=== PATIENT | female | born 1965 | race Asian ===

== ENCOUNTER 2017-01-06 14:10 | Outpatient (CLI) | payer MEDICAID ==
--- NOTE | 2017-01-07 16:31 | Mammography Report ---
DIGITAL SCREENING MAMMOGRAM: 01/06/2017 CLINICAL INDICATION: A 51-year-old, for screening. COMPARISON: 05/2015, 01/2013, 01/2011, 01/2010, 01/2009. TECHNIQUE: Routine CC and MLO projections were obtained of the breasts. Bilateral laterally exaggera sherine craniocaudal views. FINDINGS: Parenchymal tissue within both breasts is heterogeneously dense, which may lower the sensi tivity of mammography; however, there are no dominant masses, suspicious microcalcifications, or seco ndary signs of malignancy. In comparison to the previous studies, there are no significant changes. ASSESSMENT: NO MAMMOGRAPHIC EVIDENCE OF MALIGNANCY. NO SIGNIFICANT INTERVAL CHANGES. RECOMMENDATION: Screening mammography is recommended annually. BIRADS category 1 - negative. STANDARD QUALIFYING STATEMENTS 1. This examination was reviewed with the aid of Computed-Aided Detection (CAD). 2. A negative or benign imaging report should not delay biopsy if clinically suspicious findings are present. Consider surgical consultation if warranted. More than 5% of cancers are not identified by i maging. 3. Dense breasts may obscure an underlying neoplasm. 15:9:06 JOB #: [id number] EXT JOB #:[id number]
== END 2017-01-06 14:11 | disposition home or self-care (01) ==
LOC: DI.N 14:10
PROVIDERS: ATTEND Nurse Practitioner Gerontology
DX: Z12.31 Encounter for screening mammogram for malignant neoplasm of breast (principal)
CPT/HCPCS: 77067

== ENCOUNTER 2017-02-12 09:32 | Outpatient (CLI) | payer MEDICAID | END 2017-02-12 09:33 | disposition home or self-care (01) | DX: Z13.9 Encounter for screening, unspecified (principal); E78.5 Hyperlipidemia, unspecified ==

== ENCOUNTER 2017-04-22 06:06 | Day surgery (SDC) | payer MEDICAID ==
[2017-04-22] MEDS ORDERED: LACTATED RINGERS 1,000 ML IV ONE (06:30)
--- NOTE | 2017-04-22 07:37 | SURGERY HX AND PHYSICAL(T) ---
Surgical History & Physical - PMH/PSH/Social Hx Does the pt have a hx of MRSA?: No Eyes, Ears, Nose, Throat: None Cardiovascular: None Respiratory: None Skin: None Endocrine/Autoimmune: None Gastrointestinal: Hemorrhoids Urinary: None Musculoskeletal: None Psychiatric: None Orthopedic: Carpal Tunnel surgery - Home Meds and Allergies Home Medications: Sumatriptan [Imitrex] 25 mg PO PRN PRN 04/20/17 traZODone [Desyrel] 50 mg PO HS PRN 04/20/17 Acetaminophen [Tylenol] 650 mg PO Q6H PRN 04/22/17 Allergies/Adverse Reactions: Allergies Allergy/AdvReac Type Severity Reaction Status Date / Time Penicillins Allergy Hives Verified 04/20/17 13:17 - Vital Signs Temperature: 37 C Respiratory Rate: 16 O2 Saturation: 100 Weight (kg): 48.2 kg Height: 4 ft 8 in - Patient Review Patient Review: Problems were reviewed with the patient during this visit. Medications were reviewed with the patient during this visit. Allergies were reviewed this patient during this visit. Pertinent Tests Reviewed: All pertitent test for this patient were reviewed. - Assessment & Plan Assessment and Plan: Visit Type: Initial Consult Referring Provider: Sara Ambrocio History of Present Illness: Patient is here today for consult, screening colonoscopy, first one. ...................................................................Hao Phillips RN March 19, 2017 9:49 AM Flora is here for screening colonoscopy. Current Meds: TRAZODONE HCL 100 MG TABS (TRAZODONE HCL) Take one-half to one tablet by mouth at bedtime as needed for sleep SUMATRIPTAN SUCCINATE 50 MG ORAL TABS (SUMATRIPTAN SUCCINATE) Take one tablet by mouth at onset of migraine. May repeat one dose in 2 hours if symptoms do not resolve GLUCOSAMINE COMPLEX TABS (NUTRITIONAL SUPPLEMENTS) Take daily as directed - OTC BIOTIN 1000 MCG TABS (BIOTIN) Take two tablets by mouth daily VITAMIN B-12 250 MCG TABS (CYANOCOBALAMIN) Take one tablet by mouth daily Allergies: PENICILLIN V POTASSIUM (Severe) PERCOCET (Severe) Past Medical History: Reviewed history from 02/12/2017 and no changes required: HPV negative Seasonal allergies Hemorrhoids x2 Past Surgical History: Reviewed history from 09/11/2016 and no changes required: carpel tunnel Family History Summary: Reviewed history Last on 01/22/2017 and no changes required:03/19/2017 Mother (biol.) - Has Family History of Depression - Entered On: 09/11/2016 Mother (biol.) - Has Family History of Diabetes - Entered On: 09/11/2016 Mother (biol.) - Has Family History of Other Cancer - Entered On: 09/11/2016 Mother (biol.) - Has Family History of Other Medical Problems - Cancer and Diabetes - Entered On: 03/19/2017 General Comments - FH: Father from [place] Mother from lung cancer Social History: Reviewed history from 01/22/2017 and no changes required: Passive smoke exposure - no Alcohol Use - yes Drug Use - no HIV/High Risk - no Smoking History: Patient is a former smoker. Risk Factors: Smoked Tobacco Use: Former smoker Cigarettes: Yes Year quit: 2016 Years Since Last Quit: 0 Passive smoke exposure: no Drug use: no HIV high-risk behavior: no Caffeine use: 1 drinks per day Alcohol use: yes Exercise: yes Times per week: 6 Type of Exercise: housekeeping, run Seatbelt use: 100 % Sun Exposure: frequently Family History Risk Factors: Family History of KS in females < 65 years old: yes Family History of KS in males < 55 years old: no Review of Systems See HPI Medications were reviewed with the patient during this visit. Allergies were reviewed with the patient during this visit. Allergies: PENICILLIN V POTASSIUM (Severe) PERCOCET (Severe) Physical Exam General: well developed, well nourished, in no acute distress Lungs: clear bilaterally to A & P Heart: regular rate and rhythm, S1, S2 without murmurs, rubs, gallops, or clicks Abdomen: bowel sounds positive; abdomen soft and non-tender without masses, organomegaly, or hernias noted Pulses: pulses normal in all 4 extremities Extremities: no clubbing, cyanosis, edema, or deformity noted with normal full range of motion of all joints Cervical Nodes: no significant adenopathy Psych: alert and cooperative; normal mood and affect; normal attention span and concentration Impression & Recommendations: Problem # 1: Screening for colon cancer I have explained the colonoscopy procedure to the patient in detail and the risks involved, including but not limited to bleeding, perforated viscus and missing lesions. The patient understands the above and has agreed to proceed with the procedure. Colon prep instructions and prescription provided. Approximately 20 minutes spent in preparing the patient; all Questions and concerns were addressed.
[2017-04-22] MEDS ORDERED: MIDAZOLAM 2 MG/2 ML VIAL IVP ONE (07:40)
[2017-04-22] MEDS ORDERED: fentaNYL 100 MCG/2 ML VIAL IVP ONE (07:40)
[2017-04-22 08:43] VITALS: BP 100/87
== END 2017-04-22 06:07 | disposition home or self-care (01) ==
LOC: SDS 06:06
PROVIDERS: ATTEND Surgery
PROC: 0DJD8ZZ Inspection of Lower Intestinal Tract, Via Natural or Artificial Opening Endoscopic (ICD-10-PCS; principal; 2017-04-22 07:30)
DX: Z12.11 Encounter for screening for malignant neoplasm of colon (principal); K64.8 Other hemorrhoids; Z87.891 Personal history of nicotine dependence; Z82.49 Family history of ischemic heart disease and other diseases of the circulatory system
CPT/HCPCS: 45378; J7120

== ENCOUNTER 2017-06-11 09:15 | Outpatient (CLI) | payer MEDICAID | END 2017-06-11 09:16 | disposition home or self-care (01) | LOC: LAB.N 09:15 | PROVIDERS: ATTEND Nurse Practitioner Gerontology | DX: M25.50 Pain in unspecified joint (principal) | CPT/HCPCS: 36415; 84550 ==

== ENCOUNTER 2017-06-14 08:07 | Emergency (ER) | payer OTHER, MEDICAID ==
[2017-06-14 08:15] VITALS: BP 120/67
--- NOTE | 2017-06-14 08:57 | XRAY Preliminary Report ---
Exam: XR Wrist 4 View RT IMPRESSION: Negative for fracture, dislocation or subluxation in the right wrist radiography. [facility] SITE ID: [id number]
--- NOTE | 2017-06-14 09:00 | XRAY Report ---
EXAM: RIGHT WRIST RADIOGRAPHY EXAM DATE: 06/14/2017 08:29 AM. CLINICAL HISTORY: Wrist pain extending to the distal forearm post injury one week ago. COMPARISON: None. TECHNIQUE: 3 views. FINDINGS: Bones: No discrete fractures or bone lesions. Joints: No significant degenerative arthritis. No subluxations. Soft Tissues: Mild volar wrist soft tissue swelling without calcification or radiopaque foreign body. IMPRESSION: Negative for fracture, dislocation or subluxation in the right wrist radiography. [facility] Referring Provider Line: [phone] SITE ID: [id number]
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
== END 2017-06-14 09:32 | disposition home or self-care (01) ==
LOC: ED 08:07
DX: S63.501A Unspecified sprain of right wrist, initial encounter (principal); S60.211A Contusion of right wrist, initial encounter; W31.82XA Contact with other commercial machinery, initial encounter; Y93.89 Activity, other specified; Y99.0 Civilian activity done for income or pay
CPT/HCPCS: 1040M; 73110; 99282; 99283

== ENCOUNTER 2018-07-05 16:03 | Emergency (ER) | payer MEDICAID, OTHER ==
[2018-07-05 16:28] VITALS: BP 123/74
--- NOTE | 2018-07-05 17:57 | XRAY Report ---
Procedure Date: 07/05/2018 Accession Number: [id number] / [id number] Procedure: XR - Ribs w/PA Chest LT CPT Code: FULL RESULT: EXAM: LEFT RIB RADIOGRAPHY EXAM DATE: 07/05/2018 05:21 PM. CLINICAL HISTORY: Fall. COMPARISON: None. TECHNIQUE: 1 view of the chest and 2 views of the ribs. FINDINGS: Bones: Right anterior sixth rib oblique lucency, could represent a nondisplaced acute rib fracture. Lungs: No focal opacities. No pneumothorax. No pleural effusions. Mediastinum: Heart and mediastinal contours are unremarkable. IMPRESSION: Right anterior sixth rib oblique lucency, could represent a nondisplaced acute rib fracture. [facility]
[2018-07-05] MEDS ORDERED: LIDOCAINE PATCH 5% TOP PRN (19:15)
[2018-07-05] MEDS ORDERED: IBUPROFEN 400 MG TABLET PO STA (19:15)
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
== END 2018-07-05 19:40 | disposition home or self-care (01) ==
LOC: ED 16:03
DX: S22.32XA Fracture of one rib, left side, initial encounter for closed fracture (principal); W18.2XXA Fall in (into) shower or empty bathtub, initial encounter; Y93.E1 Activity, personal bathing and showering
CPT/HCPCS: 71101; 99283; A9270

== ENCOUNTER 2019-01-27 17:46 | Emergency (ER) | payer OTHER ==
[2019-01-27 17:54] VITALS: BP 134/86
[2019-01-27] MEDS ORDERED: MELOXICAM 7.5 MG TABLET PO STA (18:19)
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
== END 2019-01-27 18:29 | disposition home or self-care (01) ==
LOC: ED 17:46
DX: S16.1XXA Strain of muscle, fascia and tendon at neck level, initial encounter (principal); V43.52XA Car driver injured in collision with other type car in traffic accident, initial encounter; Y92.481 Parking lot as the place of occurrence of the external cause
CPT/HCPCS: 99283; A9270

== ENCOUNTER 2019-02-23 15:17 | Outpatient (CLI) | payer OTHER ==
--- NOTE | 2019-02-24 10:28 | XRAY Report ---
Reason: STRAIN OF MUSCLE,FASCIA TENDON AT NECK, LIGAMENT Procedure Date: 02/23/2019 Accession Number: [id number] / [id number] Procedure: XRN - Thoracic Spine 2 View CPT Code: FULL RESULT: EXAM: THORACIC SPINE RADIOGRAPHY EXAM DATE: 02/23/2019 03:45 PM. CLINICAL HISTORY: Strain of muscle, fascia tendon at neck, ligament. COMPARISON: None. TECHNIQUE: 2 views. FINDINGS: Alignment: Levoconvexity upper thoracic curvature measures approximately 12 degrees from T6 and mild dextroconvexity lower thoracic curvature measures approximately 10 degrees from T6-T10. No listhesis demonstrated. Bones: No fractures or bone lesions. Disks: Minimal mid to lower thoracic vertebral body spurring without significant disk space narrowing. Soft Tissues: Normal. The visualized lungs and cardiomediastinal silhouette are normal. IMPRESSION: 1. No acute abnormality. 2. Minimal vertebral body spurring. 3. Mild thoracic curvature, as above. [facility]
--- NOTE | 2019-02-24 10:54 | XRAY Report ---
Reason: STRAIN OF MUSCLE,FASCIA AND TENDON AT NECK,LIGAMEN Procedure Date: 02/23/2019 Accession Number: [id number] / [id number] Procedure: XRN - Cervical Spine 2 View CPT Code: FULL RESULT: EXAM: CERVICAL SPINE RADIOGRAPHY EXAM DATE: 02/23/2019 03:55 PM. CLINICAL HISTORY: STRAIN OF MUSCLE,FASCIA AND TENDON AT NECK, ligament COMPARISONS: XR CERVICAL SPINE 2 OR 3 VIEWS 11/13/2009 4:25 PM. TECHNIQUE: 3 views. FINDINGS: Alignment: Straightening of normal cervical lordosis No spondylolisthesis or scoliosis. Bones: The cervical vertebral bodies and posterior elements are well visualized from the skull base through C7-T1. No fractures or bone lesions. Disks: Normal. Disk heights are maintained. Facets: No degenerative disease. Soft Tissues: Normal. No prevertebral soft tissue swelling. The visualized lung apices are clear. IMPRESSION: Straightening of normal cervical lordosis may be from pain or spasm. Otherwise unremarkable cervical spine radiography. [facility]
== END 2019-02-23 15:18 | disposition home or self-care (01) ==
LOC: DI.N 15:17
PROVIDERS: ATTEND Family Medicine
DX: S16.1XXA Strain of muscle, fascia and tendon at neck level, initial encounter (principal); S23.3XXA Sprain of ligaments of thoracic spine, initial encounter
CPT/HCPCS: 72040; 72070

== ENCOUNTER 2019-07-13 14:51 | Outpatient (CLI) | payer OTHER ==
--- NOTE | 2019-07-13 20:25 | XRAY Report ---
Reason: JOINT PAIN Procedure Date: 07/13/2019 Accession Number: [id number] / [id number] Procedure: XRN - Hand 3 View RT CPT Code: FULL RESULT: EXAM: RIGHT HAND RADIOGRAPHY EXAM DATE: 07/13/2019 03:02 PM. CLINICAL HISTORY: JOINT PAIN. COMPARISON: None. TECHNIQUE: 3 views. FINDINGS: Bones: Normal. No fractures or bone lesions. Joints: Normal. No subluxations. Soft Tissues: Normal. No soft tissue swelling. IMPRESSION: Normal hand radiography. [facility]
== END 2019-07-13 14:52 | disposition home or self-care (01) ==
LOC: DI.N 14:51
PROVIDERS: ATTEND Family Medicine
DX: M79.641 Pain in right hand (principal)

== ENCOUNTER 2020-08-19 10:50 | Outpatient (CLI) | payer OTHER ==
--- NOTE | 2020-08-21 08:13 | Mammography Report ---
BILATERAL DIGITAL SCREENING MAMMOGRAM 3D/2D: 08/19/2020 CLINICAL: Routine screening. Comparison is made to exams dated: 01/06/2017 mammogram and 06/05/2015 mammogram - Merged with [facility]. The tissue of both breasts is heterogeneously dense. This may lower the sensitivity of mamm ography. No significant masses, calcifications, or other findings are seen in either breast. There has been no significant interval change. IMPRESSION: NEGATIVE There is no mammographic evidence of malignancy. A 1 year screening mammogram is recommended. This exam was interpreted at Station ID: [id number]. NOTE: For mammograms, a report in lay terms will be sent to the patient. Approximately 15% of breast malignancies will not be visualized mammographically. In the management of a palpable breast mass, a negative mammogram must not discourage biopsy of a clinically suspicious lesion. Electronically Signed By: Travis Dominguez M.D. slc/penrad:08/19/2020 18:25:01 ACR BI-RADS Category 1: Negative 3341F PARENCHYMAL PATTERN: (D) - The breast(s) demonstrate(s) heterogeneously dense fibroglandular lamont nice. BI-RADS CATEGORY: (1) - 1 RECOMMENDATION: (ANNUAL) - Recommend routine annual screening mammography. [id number] 1 year screening LATERALITY: (B)
== END 2020-08-19 10:51 | disposition home or self-care (01) ==
LOC: DI.N 10:50
DX: Z12.31 Encounter for screening mammogram for malignant neoplasm of breast (principal)
CPT/HCPCS: 77063; 77067

== ENCOUNTER 2020-08-21 07:04 | Outpatient (CLI) | payer OTHER ==
[2020-08-21 11:54] LABS: BASOPHILS # (AUTO) 0.1 10^3/uL (0.0-0.1); BASOPHILS % (AUTO) 1.4 %; EOSINOPHILS # (AUTO) 0.1 10^3/uL (0.0-0.7); EOSINOPHILS % (AUTO) 1.9 %; HGB - HEMOGLOBIN 15.1 g/dL (12.0-16.0); LYMPHOCYTES # (AUTO) 1.8 10^3/uL (1.5-3.5); LYMPHOCYTES % (AUTO) 29.8 %; MEAN CORPUSCULAR HEMOGLOBIN 31.9 pg (27.0-31.0); MEAN CORPUSCULAR HGB CONC 33.9 g/dL (32.0-36.0); MEAN CORPUSCULAR VOLUME 93.9 fL (81.0-99.0); MEAN PLATELET VOLUME 9.6 fL (7.9-10.8); MONOCYTES # (AUTO) 0.4 10^3/uL (0.0-1.0); MONOCYTES % (AUTO) 7.3 %; NEUTROPHILS # (AUTO) 3.5 10^3/uL (1.5-6.6); NEUTROPHILS % (AUTO) 59.4 %; PLT - PLATELET COUNT 286 10^3/uL (130-450); RED BLOOD COUNT 4.74 10^6/uL (4.20-5.40); RED CELL DISTRIBUTION WIDTH 12.4 % (12.0-15.0); WHITE BLOOD COUNT 5.9 x10^3/uL (4.8-10.8)
[2020-08-21 12:20] LABS: ALBUMIN 4.2 g/dL (3.2-5.5); ALBUMIN/GLOBULIN RATIO 1.2 (1.0-2.2); ALKALINE PHOSPHATASE 85 IU/L (42-121); ALT ALANINE AMINOTRANSFERASE 40 IU/L (10-60); AST ASPARTATE AMINOTRANSFERASE 29 IU/L (10-42); BILIRUBIN,TOTAL 0.9 mg/dL (0.2-1.0); BUN - BLOOD UREA NITROGEN 14 mg/dL (6-20); CALCIUM 9.4 mg/dL (8.5-10.3); CARBON DIOXIDE - CO2 29 mmol/L (21-32); CHLORIDE 104 mmol/L (101-111); CHOL/HDL RATIO 3.3 (<4.4); CHOLESTEROL 238 mg/dL; CREATININE 0.6 mg/dL (0.4-1.0); GLUCOSE 102 mg/dL (70-100); HDL CHOLESTEROL 72 mg/dL; LDL CHOLESTEROL,CALCULATED 147 mg/dL; SODIUM 139 mmol/L (135-145); TOTAL PROTEIN 7.6 g/dL (6.7-8.2); VLDL CHOLESTEROL 19 mg/dL
== END 2020-08-21 23:59 | disposition home or self-care (01) ==
LOC: LAB.WCP 07:04
PROVIDERS: ATTEND Nurse Practitioner Family
DX: Z13.9 Encounter for screening, unspecified (principal)
CPT/HCPCS: 36415; 80053; 80061; 83721; 84443; 85025

== ENCOUNTER 2023-03-15 07:41 | Outpatient (CLI) | payer OTHER ==
[2023-03-15 12:02] LABS: BASOPHILS # (AUTO) 0.1 10^3/uL (0.0-0.1); BASOPHILS % (AUTO) 1.2 %; EOSINOPHILS # (AUTO) 0.1 10^3/uL (0.0-0.7); EOSINOPHILS % (AUTO) 2.1 %; HCT - HEMATOCRIT 44.9 % (37.0-47.0); HGB - HEMOGLOBIN 14.9 g/dL (12.0-16.0); LYMPHOCYTES # (AUTO) 1.6 10^3/uL (1.5-3.5); LYMPHOCYTES % (AUTO) 26.9 %; MEAN CORPUSCULAR HGB CONC 33.2 g/dL (32.0-36.0); MEAN CORPUSCULAR VOLUME 96.6 fL (81.0-99.0); MEAN PLATELET VOLUME 9.5 fL (7.9-10.8); MONOCYTES # (AUTO) 0.3 10^3/uL (0.0-1.0); MONOCYTES % (AUTO) 5.4 %; NEUTROPHILS # (AUTO) 3.7 10^3/uL (1.5-6.6); NEUTROPHILS % (AUTO) 64.2 %; PLT - PLATELET COUNT 253 10^3/uL (130-450); RED BLOOD COUNT 4.65 10^6/uL (4.20-5.40); RED CELL DISTRIBUTION WIDTH 12.3 % (12.0-15.0); WHITE BLOOD COUNT 5.8 x10^3/uL (4.8-10.8)
[2023-03-15 12:46] LABS: ESTIMATED AVERAGE GLUCOSE 114 mg/dL (70-100); HEMOGLOBIN A1c% 5.6 % (4.27-6.07)
[2023-03-15 13:09] LABS: THYROID STIMULATING HORMONE 2.41 uIU/mL (0.34-5.60)
[2023-03-15 13:38] LABS: ALBUMIN/GLOBULIN RATIO 1.3 (1.0-2.2); ALKALINE PHOSPHATASE 68 IU/L (42-121); ALT ALANINE AMINOTRANSFERASE 18 IU/L (10-60); AST ASPARTATE AMINOTRANSFERASE 24 IU/L (10-42); BILIRUBIN,TOTAL 0.8 mg/dL (0.2-1.0); BUN - BLOOD UREA NITROGEN 11 mg/dL (6-20); CALCIUM 8.8 mg/dL (8.5-10.3); CARBON DIOXIDE - CO2 26 mmol/L (21-32); CHLORIDE 108 mmol/L (101-111); CHOL/HDL RATIO 3.3 (<4.4); CHOLESTEROL 224 mg/dL; CREATININE 0.4 mg/dL (0.4-1.0); GFR - MDRD 165 (>89); GLUCOSE 96 mg/dL (70-100); HDL CHOLESTEROL 68 mg/dL; LDL CHOLESTEROL,CALCULATED 141 mg/dL; LDL/HDL RATIO 2.1 (<4.4); POTASSIUM 3.8 mmol/L (3.5-5.0); SODIUM 136 mmol/L (135-145); TOTAL PROTEIN 7.1 g/dL (6.7-8.2); TRIGLYCERIDES 77 mg/dL; VLDL CHOLESTEROL 15 mg/dL
== END 2023-03-15 07:42 | disposition home or self-care (01) ==
LOC: LAB.N 07:41
PROVIDERS: ATTEND Nurse Practitioner
DX: E78.5 Hyperlipidemia, unspecified (principal); R53.83 Other fatigue; Z13.1 Encounter for screening for diabetes mellitus
CPT/HCPCS: 36415; 80053; 80061; 83036; 83721; 84443; 85025

== ENCOUNTER 2023-04-07 08:00 | Outpatient (CLI) | payer OTHER ==
--- NOTE | 2023-04-08 09:13 | Mammography Report ---
BILATERAL DIGITAL SCREENING MAMMOGRAM 3D/2D: 04/07/2023 CLINICAL: Routine screening. Comparison is made to exams dated: 03/05/2022 mammogram, 08/19/2020 mammogram, 01/06/2017 mammogram, 2014 mammogram, 02/02/2013 mammogram, and 02/17/2011 mammogram - [facility]. Both breasts are heterogeneously dense, which may obscure small masses (category c / 51-75% glandular tissue). No significant masses, calcifications, or other findings are seen in either breast. There has been no significant interval change. IMPRESSION: NEGATIVE There is no mammographic evidence of malignancy. A 1 year screening mammogram is recommended. Based on the Tyrer Cuzick model (a risk assessment model) the patients lifetime risk is 10.1% and he r 10 year risk is 3.5%. According to the ACR, ACS, and NCCN guidelines, an annual breast MRI exam cali ng with mammogram is recommended if the patients lifetime risk is 20% or greater. This exam was interpreted at Station ID: [id number]. NOTE: For mammograms, a report in lay terms will be sent to the patient. Approximately 15% of breast malignancies will not be visualized mammographically. In the management of a palpable breast mass, a negative mammogram must not discourage biopsy of a clinically suspicious lesion. Electronically Signed By: Morgan [email or web address]/[email or web address]:04/07/2023 10:33:47 letter sent: No_Letter ACR BI-RADS Category 1: Negative 3341F PARENCHYMAL PATTERN: (D) - The breast(s) demonstrate(s) heterogeneously dense fibroglandular lamont nice. BI-RADS CATEGORY: (1) - 1 Mammogram [id number] 1 year screening LATERALITY: (B)
== END 2023-04-07 08:01 | disposition home or self-care (01) ==
LOC: DI.N 08:00
PROVIDERS: ATTEND Nurse Practitioner
DX: Z12.31 Encounter for screening mammogram for malignant neoplasm of breast (principal)

== ENCOUNTER 2024-04-27 07:02 | Outpatient (CLI) | payer OTHER ==
[2024-04-27 12:08] LABS: BASOPHILS # (AUTO) 0.1 10^3/uL (0.0-0.1); BASOPHILS % (AUTO) 1.1 %; EOSINOPHILS # (AUTO) 0.1 10^3/uL (0.0-0.7); EOSINOPHILS % (AUTO) 0.8 %; HCT - HEMATOCRIT 45.4 % (37.0-47.0); HGB - HEMOGLOBIN 14.7 g/dL (12.0-16.0); LYMPHOCYTES # (AUTO) 1.7 10^3/uL (1.5-3.5); LYMPHOCYTES % (AUTO) 26.5 %; MEAN CORPUSCULAR HEMOGLOBIN 31.3 pg (27.0-31.0); MEAN CORPUSCULAR HGB CONC 32.4 g/dL (32.0-36.0); MEAN CORPUSCULAR VOLUME 96.8 fL (81.0-99.0); MEAN PLATELET VOLUME 9.8 fL (7.9-10.8); MONOCYTES # (AUTO) 0.4 10^3/uL (0.0-1.0); MONOCYTES % (AUTO) 5.9 %; NEUTROPHILS # (AUTO) 4.3 10^3/uL (1.5-6.6); NEUTROPHILS % (AUTO) 65.5 %; PLT - PLATELET COUNT 291 10^3/uL (130-450); RED BLOOD COUNT 4.69 10^6/uL (4.20-5.40); RED CELL DISTRIBUTION WIDTH 12.4 % (12.0-15.0); WHITE BLOOD COUNT 6.5 x10^3/uL (4.8-10.8)
[2024-04-27 12:56] LABS: ALBUMIN 4.5 g/dL (3.2-5.5); ALBUMIN/GLOBULIN RATIO 1.6 (1.0-2.2); ALKALINE PHOSPHATASE 86 IU/L (42-121); ALT ALANINE AMINOTRANSFERASE 25 IU/L (10-60); AST ASPARTATE AMINOTRANSFERASE 23 IU/L (10-42); BILIRUBIN,TOTAL 1.1 mg/dL (0.2-1.0); BUN - BLOOD UREA NITROGEN 11 mg/dL (6-20); CALCIUM 9.7 mg/dL (8.5-10.3); CARBON DIOXIDE - CO2 30 mmol/L (21-32); CHLORIDE 101 mmol/L (101-111); CHOL/HDL RATIO 3.2 (<4.4); CHOLESTEROL 229 mg/dL; CREATININE 0.6 mg/dL (0.6-1.3); CRP - C-REACTIVE PROTEIN < 0.5 mg/dL (<0.5); GFR - MDRD 103 (>89); GLUCOSE 98 mg/dL (74-104); HDL CHOLESTEROL 71 mg/dL; LDL CHOLESTEROL,CALCULATED 143 mg/dL; POTASSIUM 3.8 mmol/L (3.5-4.5); SODIUM 137 mmol/L (135-145); TOTAL PROTEIN 7.3 g/dL (6.4-8.9); TRIGLYCERIDES 76 mg/dL (48-352); URIC ACID 5.5 mg/dL (2.3-6.6); VLDL CHOLESTEROL 15 mg/dL
[2024-04-27 13:02] LABS: THYROID STIMULATING HORMONE 3.01 uIU/mL (0.34-5.60)
[2024-04-27 13:22] LABS: RHEUMATOID FACTOR NEGATIVE (Negative)
== END 2024-04-27 07:03 | disposition home or self-care (01) ==
LOC: LAB.N 07:02
PROVIDERS: ATTEND Nurse Practitioner
DX: E78.5 Hyperlipidemia, unspecified (principal); R53.83 Other fatigue; F32.A Depression, unspecified; M19.049 Primary osteoarthritis, unspecified hand
CPT/HCPCS: 36415; 80053; 80061; 83721; 84443; 84550; 85025; 85651; 86038; 86140; 86200; 86225; 86430

== ENCOUNTER 2024-07-20 08:12 | Outpatient (CLI) | payer OTHER ==
--- NOTE | 2024-07-21 15:34 | Mammography Report ---
BILATERAL DIGITAL SCREENING MAMMOGRAM 3D/2D: 07/20/2024 CLINICAL: Routine screening. Comparison is made to exams dated: 04/07/2023 mammogram, 03/05/2022 mammogram, 08/19/2020 mammogram, 01/06 mammogram, 02/02/2013 mammogram, and 06/05/2015 mammogram - [facility]. Both breasts are heterogeneously dense, which may obscure small masses (category c / 51-75% glandular tissue). No significant masses, calcifications, or other findings are seen in either breast. There has been no significant interval change. IMPRESSION: NEGATIVE There is no mammographic evidence of malignancy. A 1 year screening mammogram is recommended. Based on the Tyrer Cuzick model (a risk assessment model) the patient's lifetime risk is 9.8% and her 10 year risk is 3.8%. According to the ACR, ACS, and NCCN guidelines, an annual breast MRI exam marvin g with mammogram is recommended if the patient's lifetime risk is 20% or greater. This exam was interpreted at Station ID: [id number]. NOTE: For mammograms, a report in lay terms will be sent to the patient. Approximately 15% of breast malignancies will not be visualized mammographically. In the management of a palpable breast mass, a negative mammogram must not discourage biopsy of a clinically suspicious lesion. Electronically Signed By: Arabella [email or web address]/[email or web address]:07/20/2024 15:50:54 letter sent: No_Letter ACR BI-RADS Category 1: Negative 3341F PARENCHYMAL PATTERN: (D) - The breast(s) demonstrate(s) heterogeneously dense fibroglandular parzaky arlet. BI-RADS CATEGORY: (1) - 1 RECOMMENDATION: (ANNUAL) - Recommend routine annual screening mammography. [id number] 1 year screening LATERALITY: (B)
== END 2024-07-20 08:13 | disposition home or self-care (01) ==
LOC: DI.N 08:12
DX: Z12.31 Encounter for screening mammogram for malignant neoplasm of breast (principal); R92.333 Mammographic heterogeneous density, bilateral breasts